=== PATIENT | male | born 1950 | race Caucasian/White ===

== ENCOUNTER → 2022-12-12 | Outpatient (CLI) | payer MEDICARE, OTHER, SELFPAY ==
--- NOTE | 2022-12-12 15:00 | CT_ITS ---
STUDY: CT ABDOMEN AND PELVIS WITHOUT CONTRAST REASON FOR EXAM: Male, 72 years old. GROSS HEMATURIA RADIATION DOSAGE (If Supplied By Facility): CTDIvol = ( 12.92 ) mGy, DLP = ( 703.87 ) mGycm TECHNIQUE: Transaxial images were obtained from the dome of the diaphragm to the symphysis pubis without oral contrast, and without intravenous contrast. Sagittal and coronal images were reconstructed. Individualized dose optimization techniques were used for this CT. COMPARISON: None. FINDINGS: Calcified granuloma in the posterior medial segment of the left lower lobe. Coronary artery calcification. Normal liver. Normal gallbladder and extrahepatic biliary system. Normal spleen. Normal pancreas. There is a small, circumscribed, smooth, low attenuation right adrenal mass, consistent with an adrenal adenoma. This measures 3 cm x 2.5 cm. Normal left adrenal gland. There is a 5.2 cm x 3.7 cm cyst in the medial midportion and lower pole of the right kidney. There is a 4.8 mm nonobstructive calculus in the upper pole calyx of the left kidney. There is a 0.55 mm nonobstructive calculus in the lower pole calyx of left kidney as well as a punctate calcification adjacent. There is a 1.8 cm x 2.1 cm cyst in the upper medial portion of the left kidney. This also evidence of a 2.17 m cyst in the inferior anterior aspect of the left kidney. Normal visualized stomach. Normal small intestine. Normal colon. The appendix is visualized and appears normal. There is diffuse atherosclerotic calcification of the abdominal aorta, without a demonstrated aneurysm. Normal inferior vena cava. There is borderline retroperitoneal lymphadenopathy with enlarged nodes no greater than 10mm in the short axis diameter. Multiple stones are seen within the gallbladder. There is evidence of diffuse bladder wall thickening. There is trabeculation of the bladder along its superior anterior aspect. There is enlargement of the prostate gland. It measures 5.9 cm x 5.2 cm. Calcifications are seen within it. There is a small umbilical hernia containing fat. There are degenerative changes of the visualized lumbar spine. CT/Abdomen/Pelvis without Cont IMPRESSION: Multiple stones are seen in the urinary bladder. Diffuse bladder wall thickening with the trabeculations especially superior and anterior. Prostatic enlargement with calcification and indentation at the bladder base. Nonobstructive left intrarenal calculi as well as bilateral renal cysts. Findings suggestive of a 3 cm adenoma in the right adrenal gland. Electronically Signed: Kvng Crabtree MD at 15:39 EDT ,
== END | disposition home or self-care (01) ==
LOC: CT 14:59
PROVIDERS: PCP Internal Medicine; Referring Provider Urology; Visit Provider Urology
DX: R31.0 Gross hematuria (principal)
CPT/HCPCS: 74176

== ENCOUNTER 2023-01-22 17:20 | Observation (INO) | payer MEDICARE, OTHER, SELFPAY ==
--- NOTE | 2023-01-13 06:46 | EKG12_ITS ---
Test Reason : PRE-OP Blood Pressure : / mmHG Vent. Rate : 055 BPM Atrial Rate : 055 BPM P-R Int : 234 ms QRS Dur : 096 ms QT Int : 442 ms P-R-T Axes : 025 -51 090 degrees QTc Int : 422 ms Sinus bradycardia with 1st degree A-V block Left axis deviation Low voltage QRS Inferior infarct , age undetermined Abnormal ECG No previous ECGs available Confirmed by SAGRARIO ALEJANDRO, TRIP ([id number]), newspaper managing editor ILANA CARRILLO ([id number]) on 01/16/2023 9:32:04 AM Referred By: Dawson Bailey Confirmed By:TRIP ZABALA MD
[2023-01-13 07:32] LABS: Hematocrit 42.9 % (40-54); Hemoglobin 13.6 g/dL (13.0-16.5); Mean Corp Hgb Conc 31.7 g/dL (32-36); Mean Corpuscular Volume 91.5 fL (80-94); Mean Platelet Vol. 9.3 fl (6.2-12.0); Platelet Count 253 K/mm3 (150-450); RBC Distribution Width CV 13.8 % (11.6-14.6); RBC Distribution Width SD 46.1 fl (35.1-43.9); Red Blood Count 4.69 M/mm3 (4.6-6.2); White Blood Count 6.5 K/mm3 (4.4-11.0)
[2023-01-13 08:07] LABS: Anion Gap 4 (5-15); BUN 28 mg/dL (7-18); BUN/Creat Ratio 29.3 RATIO (10-20); Calcium,Total 8.9 mg/dL (8.5-10.1); Chloride 106 mmol/L (98-107); Creatinine, Serum 0.96 mg/dL (0.70-1.30); EST Glomerular Filtration Rate 82 mL/min (>60); Est Glom Filt Rate - Afr Amer 99 mL/min (>60); Glucose 94 mg/dL (74-106); Sodium Level 139 mmol/L (136-145)
[2023-01-22] VITALS (12 sets, daily range): BP systolic 109–160; BP diastolic 58–83; PULSE 46–61; RESP 14–18; TEMP 36.2–36.8; O2SAT 94–100; BMI 29.1
--- NOTE | 2023-01-22 | IMM_PTH ---
PATIENT: ASHLEY SAEED V LOC: MS3 U#:[id number] AGE/SX: 72/M ROOM: [facility] [place] RE01/22/[address]: Dr. Dawson Bailey MD : 1950 BED: 1 DIS: 01/23/2023 SPEC #: [id number] RECD: 01/23/23 12:19 STATUS: ARNULFO REQ #: [id number] LEIF: 01/22/23 00:[address]: Dawson Bailey DEPT: IMMUNOHISTOCHEMISTRY RECD BY: Edith Barraza ENTERED: 01/23/23 12:20 SP TYPE: IMMUNO OTHR DR: Dr. Devang Sage MD Tissues: A - Prostate, NOS Procedures: P40 (add) 34BE12 (initial) PHYSICIAN & INSTITUTION [place] [id number] SPECIMEN INFORMATION: Tissue Source: A ? Prostate tissue Clinical Info: BPH with obstruction and bladder stones Specimen Number: [id number] A3 CPT code: 34361, 45018 METHODOLOGY: Deparaffinized sections of prefer/formalin-fixed tissue or PAP/DQ stained slides are incubated with monoclonal/polyclonal antibodies/oligonucleotide probes. Localization is made via biotin free immunoperoxidase method. Appropriate controls are performed and reacted as expected. Results on target cell population are indicated in the following table: RESULTS: ANTIBODY / CLONE RESULT Block A3 P40 (BC28) negative 34BE12 (34BE12) negative These tests were developed and their performance characteristics determined by [facility]. They may not have been cleared or approved by the U.S. Food and Drug Administration. The FDA has determined that such clearance or approval is not necessary. The above immunohistochemical/dualISH markers are ordered and reviewed by the Pathologist. INTERPRETATION: A. Prostate tissue, simple prostatectomy: Adenocarcinoma. JOSH:joaquin 01/24/2023
[2023-01-22] MEDS: Lactated Ringers 1,000 ML 15 ML IV (09:43)
--- NOTE | 2023-01-22 10:01 | PCM.HP.STD ---
HPI - General General Date of Service: 01/22/23 Chief Complaint: BPH with obstruction and bladder stones HPI Narrative ASHLEY SAEED, is a 72 M who presents for simple prostatectomy enucleation of extracting adenomas and also removal bladder stones robotically. [facility] Medical History (Updated 01/09/23 @ 12:34 by Kailey Johnston) Bladder disease Cardiology follow-up encounter Chewing tobacco nicotine dependence High cholesterol History of echocardiogram History of heart attack History of stress test Leg cramps Migraine headache Prostate disease Wears glasses Home Medications aspirin 81 mg tablet,delayed release 81 mg PO DAILY 01/09/23 [History Last Taken Unknown] atorvastatin 40 mg tablet 40 mg PO DAILY 01/09/23 [History Last Taken Unknown] cholecalciferol (vitamin D3) 25 mcg (1,000 unit) capsule (Vitamin D3) 25 mcg PO DAILY 01/09/23 [History Last Taken Unknown] clopidogrel 75 mg tablet 75 mg PO DAILY 01/09/23 [History Last Taken 01/15/23] finasteride 5 mg tablet 5 mg PO DAILY 01/09/23 [History Last Taken Unknown] losartan 50 mg tablet 50 mg PO DAILY 01/09/23 [History Last Taken 01/22/23] metoprolol tartrate 25 mg tablet 25 mg PO QHS 01/09/23 [History Last Taken 01/22/23] multivitamin with minerals 1 tab PO DAILY 01/09/23 [History Last Taken Unknown] tamsulosin 0.4 mg capsule 0.4 mg PO QHS 01/09/23 [History Last Taken Unknown] Allergy/AdvReac Type Severity Reaction Status Date / Time No Known Allergies Allergy Verified 01/22/23 09:14 Surgical History (Updated 01/09/23 @ 12:34 by Kailey Johnston) History of coronary artery stent placement Hx of appendectomy Hx of bilateral inguinal hernia repair Social History Smoking Status: Current every day smoker tobacco type: smokeless tobacco Vital Signs Vital Signs Vital Signs: 01/22/23 09:27 01/22/23 09:27 Temperature 97.6 F L Temperature Source Temporal Pulse Rate 53 L Respiratory Rate 16 Respiratory Pattern Normal Blood Pressure 160/79 H Blood Pressure Mean 106 Blood Pressure Source Monitor Blood Pressure Position Semi-Fowlers Blood Pressure Location Left Arm Pulse Ox 100 Oxygen Delivery Method Room Air Weight Weight: 100.244 kg Body Mass Index (BMI) 29.1 Results Lab / Micro Data Result Diagrams: 01/13/23 07:04 01/13/23 07:04
--- NOTE | 2023-01-22 10:08 | DCINST_ITS ---
Discharge Instructions Diet Discharge Diet: No restrictions, Light diet - advance as tolerated and Soft diet Activity Discharge Activity: May Not Drive Additional Activity Instructions:: no heavy lifting Dressing / Incision Catheter: Groves to leg bag and Groves to large bag Drain: [place] Follow Up Care Please Follow Up With: Dawson Bailey MD When: call for appt. Test Results: Test results from this visit will be discussed in further detail at your follow- up appointment, if applicable. Discharge Plan Admission Primary Reason for Your Visit: Simple prostatectomy Attending Provider: Dawson Bailey Primary Care Provider: Devang Saeg Discharge Orders/Prescriptions Prescriptions: New oxycodone-acetaminophen [Endocet] 5-325 mg tablet 1 tab PO Q6H PRN (Reason: pain) 7 Days Qty: 14 0RF ciprofloxacin HCl 500 mg tablet 500 mg PO BID Qty: 14 0RF Continued losartan 50 mg Tablet 50 mg PO DAILY atorvastatin 40 mg Tablet 40 mg PO DAILY multivitamin with minerals Tablet 1 tab PO DAILY cholecalciferol (vitamin D3) [Vitamin D3] 25 mcg (1,000 unit) Capsule 25 mcg PO DAILY metoprolol tartrate 25 mg Tablet 25 mg PO QHS Held clopidogrel 75 mg Tablet 75 mg PO DAILY Hold Instructions: Resume on 02/06/23. aspirin 81 mg Tablet,Delayed Release (Dr/Ec) 81 mg PO DAILY Hold Instructions: Resume on 02/06/23. Discontinued tamsulosin 0.4 mg Capsule 0.4 mg PO QHS finasteride 5 mg Tablet 5 mg PO DAILY Referrals / Follow Up: Dawson Bailey MD [Med Staff - Active Staff] - Devang Sage MD [Primary Care Provider] - Disposition Disposition (needs filled in before D/C Order can be placed): Home, Self Care
[2023-01-22] MEDS: Cefazolin 2 GM in 0.9% Normal Saline 100 ML IV (10:30)
--- NOTE | 2023-01-22 11:35 | PROST_PTH ---
PATIENT: ASHLEY SAEED V LOC: MS3 U#:[id number] AGE/SX: 72/M ROOM: [facility] [place] RE01/22/[address]: Dr. Dawson Bailey MD : 1950 BED: 1 DIS: 01/23/2023 SPEC #: [id number] RECD: 01/22/23 13:33 STATUS: ARNULFO WALLACE #: [id number] LEIF: 01/22/23 11:[address]: Dawson Bailey DEPT: SURGICAL PATHOLOGY RECD BY: Adam Tristan ENTERED: 01/22/23 13:57 SP TYPE: PROSTATE OTHR DR: Dr. Devang Sage MD Tissues: A - Prostate, NOS B - CALCULI C - Urinary bladder, NOS Procedures: Surgery Specimen Level I Surgery Specimen Level IV Surgery Specimen Level V HEADER OPERATION: Lap robotic simple prostatectomy, cystolitholapaxy PRE-OP DIAGNOSIS: BPH with obstruction and bladder stones TISSUE SUBMITTED: A ? Prostate tissue, B ? Bladder stone, C ? Bladder mucosa biopsy MICROSCOPIC DIAGNOSIS A. Prostate tissue, simple prostatectomy: A small focus of prostatic adenocarcinoma. See cancer summary in the comment section. B. Bladder stone: Pieces of stone (gross only). C. Bladder mucosa, biopsy: A piece of urothelial mucosa with chronic inflammation and congestion. Negative for malignancy. See comment. SJ:rg 01/24/2023 COMMENT A. Immunohistochemistry ([id number]) supports the above diagnosis. PROSTATE CANCER SUMMARY: Procedure: Simple Prostatectomy Histologic Type: Acinar adenocarcinoma Histologic Grade: Grade group 1 (Vinicius score 3+3=6) Tumor Quantitation: Percentage of prostate involved by tumor: <5% Tumor size: 0.5 x 0.4 cm (measured microscopically) Periprostatic Fat Invasion: Not applicable Seminal Vesicle Invasion: Not applicable Lymphvascular Invasion: Not identified Perineural Invasion: Not identified Additional Pathologic Findings: Benign prostatic hyperplasia, glandular and stromal type. - Chronic inflammation. Treatment Effect: No known presurgical therapy. The above summary is in compliance with [employer] [place] [employer] (CAP) Cancer Protocols Checklist and [place] Joint Committee on Cancer (AJCC), Staging Manual, 8th Ed. C. Inflammatory cell infiltrate consists of lymphocytes and eosinophils. MICROSCOPIC DESCRIPTION Slides are reviewed. GROSS DESCRIPTION A - Received in fixative is one container labeled with the patient's name and designated prostate tissue. The specimen consists of a simple prostatectomy specimen weighing 51 gm. The prostate measures 5.0 cm transversely, 4.0 cm anterior-posteriorly and 7.0 cm craniocaudally. Sections do not reveal any mass lesion. The left lobe appears to be larger than the right. [place] Straightener Stamper sections are submitted in ten cassettes as follows: 1-5 ? right lobe (cassette 1 also contains the most apical portion of the prostate), 610 ? left lobe. B - Received without fixative labeled with the patient's name and designated bladder stones. The specimen consists of eight pebble-like brownish-black round to ovoid stones measuring in aggregate 5.0 x 4.5 x 1.5 cm and 0.8 to 1.5 cm in greatest dimension. The specimen is for gross identification only. C - Received in fixative is one container labeled with the patient's name and designated bladder mucosa biopsy. The specimen consists of one irregular fragment of light hawley soft tissue that measures 0.7 x 0.5 x 0.2 cm. The specimen is totally submitted in one cassette. / JOSH:joaquin 01/22/2023 TC:0 CPT: 99141, 06673, 66062
[2023-01-22] MEDS: Bupivacaine Mpf 0.5% 30 ML VIAL (11:38)
--- NOTE | 2023-01-22 12:48 | OP.PCM_ITS ---
Report of Operation Date of Procedure: 01/15/23 Pre-Operative Diagnosis: BPH with obstruction bladder stone abnormal bladder mu cosa Post-Operative Diagnosis: Same Surgery/Procedure Performed:: Laparoscopic robotic assisted simple prostatectomy, cystolitholapaxy for large bladder stones, biopsy of bladder mucosa, extensive cauterization of the bladder mucosa Description of Surgical Findings:: Indication is a 72-year-old male with a history of a very large prostate very distended bladder and incomplete bladder emptying has been having recurrent bleeding on cystoscopy is found to have multiple large stones within the bladder a very large prostate and also some redness in the bladder mucosa today plan to taken the surgery working address all the issues we will do a simple prostatectomy to allow him to empty his bladder better muscle can removal the bladder stones and also will get a biopsy of the mucosa my suspicion is that this is chronic inflammation but what to rule out carcinoma by getting a biopsy. Patient is taken back to the operating room at a smooth induction of general anesthesia he was placed in supine position in dorsolithotomy position. The abdomen was shaved prepped and draped in usual sterile fashion Shah catheter was placed on the field. I then made a small incision above the umbilicus and then placed a Veress needle into the CO2 cavity field CO2 cavity CO2 gas and then placed the camera trocar right arm trocar left arm trocar and then air seal port. We first dissected some adhesions in the abdomen from a prior appendectomy years ago. Once this was freed up then we distended the bladder with 250 cc of normal saline I then made an incision in the midline of the bladder I then used 2 Percy needles to retract the bladder laterally. And then after the bladder was retracted laterally then I went in inside the bladder first identified multiple large stones the stones there were like 6 stones each measuring 2.5 cm in size all the stones were put in a bag and then extracted from the bladder. I then incised the mucosa over the prostate circumferentially around the catheter we deflated the catheter pulled back a little bit and then we proceeded with the nucleation of the prostate adenoma on the right side I got into the plane between the prostate and the bladder And the prostate and so I retracted the bladder laterally we worked her way underneath the prostate laterally left side right side and an anterior until we got all the way around the prostate adenoma and then came across the urethral strip opened up the strip and then the prostate was enucleated completely. Then at this point cauterization was done of the prostate fossa to control bleeding and then we placed Floseal in the prostate fossa and then we placed a 22 Norwegian three-way catheter in the prostate fossa and then we closed the then we put the end enucleated prostate into Endo Catch bag I then went to the mucosa and the mucosa had like a look like cystitis cystica but a chronic inflammation all around the bladder neck I suspect that this was from his bladder stones but I wanted to get a biopsy to rule out carcinoma so biopsy of the mucosa was taken and then I cauterized all the because of the look like abnormal reddish inflammation again it was questionable with is really cancer chronic inflammation so I did a biopsy and cauterize all the areas that looked abnormal. Both the left ureteral force orifices were identified and not injured during the procedure I then closed the bladder with a running stitch we used a 2 oh V-Loc stitch and then a second layer with a 2-0 Vicryl stitch once the bladder was closed and I extracted the prostate and the stones to the umbilicus the robot was undocked we then closed the extraction site and then we also placed a stitch in the air seal port which is a 1012 port patient anesthetic was reversed and he was extubated currently being taken to the PACU in stable condition with continuous bladder irrigation. Surgeon: Dawson Bailey Type of Anesthesia: General Drains: shah 22fr [address] Admit VTE Documentation VTE Present on Admission: No VTE Mechan Device Prophylaxis: SCD's VTE Pharm Prophylaxis ordered?: No
[2023-01-22] MEDS: Ketorolac 15 MG/ML Vial IV ×2 (15:20→20:27)
[2023-01-22] MEDS: 0.9% Normal Saline 1,000 ML 125 ML IV (18:43)
[2023-01-22] MEDS: Docusate Sodium 100 MG Capsule 200 MG PO (22:06)
[2023-01-22] MEDS: Ciprofloxacin 400 MG/200 ML BAG 200 MG IV (22:06)
[2023-01-23] MEDS: Ketorolac 15 MG/ML Vial IV (02:31)
[2023-01-23] MEDS: 0.9% Normal Saline 1,000 ML 125 ML IV (02:32)
[2023-01-23 02:35] VITALS: BP 127/67; PULSE 50; RESP 17; TEMP 36.6; O2SAT 97
[2023-01-23 06:05] VITALS: BP 136/65; PULSE 51; RESP 17; TEMP 36.5; O2SAT 93
--- NOTE | 2023-01-23 06:10 | PCM.PN.GU ---
Subjective Subjective Patient did well overnight urine is clear status post simple prostatectomy and removal of large bladder stones he can go home today with a Groves to a leg bag and we can plug the irrigation port and the three-way catheter. Objective Data Objective Data Vital Signs: Vital Signs Temp Pulse Resp BP Pulse Ox O2 Del Method 97.7 F L 51 L 17 136/65 H 93 Room Air 01/23/23 06:05 01/23/23 06:05 01/23/23 06:05 01/23/23 06:05 01/23/23 06:05 01/23/23 06:05 Oxygen Delivery Method Room Air Weight: 100.244 kg Body Mass Index (BMI) 29.1 Intake & Output: Intake and Output for Last 24 Hours 01/21/23 01/22/23 01/23/23 23:59 23:59 23:59 Intake Total 257.25 / 257.25 2177.08 / 2177.08 Output Total 7850 / 7850 78007 / 84884 Balance -7592.75 / -7592.75 -36753.92 / -20160.92 Lab / Micro Data Result Diagrams: 01/13/23 07:04 01/13/23 07:04
[2023-01-23] MEDS: Losartan Potassium 50 MG Tablet PO (07:38)
[2023-01-23] MEDS: Atorvastatin Calcium 40 MG Tablet PO (07:38)
[2023-01-23] MEDS: Docusate Sodium 100 MG Capsule 200 MG PO (07:38)
[2023-01-23] MEDS: Ciprofloxacin 400 MG/200 ML BAG 200 MG IV (07:41)
[2023-01-23 08:35] VITALS: BP 143/80; PULSE 65; RESP 16; TEMP 36.6; O2SAT 98
--- NOTE | 2023-01-23 10:00 | CASEMGMT ---
ALEKSANDER CHANEL NOTE: Pt being discharged home w/ F/C. RN CM to room. Introduced self and role. Pt states he has been educated on f/c care and is comfortable w/doing it. He denies having any further questions/concerns/needs. Margie BSN RN CM
== END 2023-01-23 10:03 | disposition home or self-care (01) ==
LOC: MS3 01-23 07:12
PROVIDERS: Anesthesiology; Admitting Provider Urology; PCP Family Medicine; Referring Provider Urology; Visit Provider Urology
PROC: 0VT04ZZ Resection of Prostate, Percutaneous Endoscopic Approach (ICD-10-PCS; CPT 55867; principal; 2023-01-22 11:15)
DX: C61 Malignant neoplasm of prostate (principal); N40.1 Benign prostatic hyperplasia with lower urinary tract symptoms; E78.00 Pure hypercholesterolemia, unspecified; Z79.02 Long term (current) use of antithrombotics/antiplatelets; F17.220 Nicotine dependence, chewing tobacco, uncomplicated; Z79.82 Long term (current) use of aspirin; N13.8 Other obstructive and reflux uropathy; I25.2 Old myocardial infarction; Z79.899 Other long term (current) drug therapy; N21.0 Calculus in bladder; Q64.79 Other congenital malformations of bladder and urethra
CPT/HCPCS: 52601; 52318; 52204; 00914; S2900; 36415; 80048; 85027; 88300; 88305; 88307; 88341; 88342; 93005; 96361; 96365; 96366; 96375; 96376; 99221; 99406; J7030; J7120; G0378; J0744; J2405

== ENCOUNTER → 2023-06-02 | Outpatient (CLI) | payer MEDICARE, OTHER, SELFPAY ==
[2023-06-02 09:36] LABS: PSA,Total- Diagnostic 1.06 ng/mL (0.0-4.0)
== END | disposition home or self-care (01) ==
LOC: LAB 08:26
PROVIDERS: PCP Family Medicine; Referring Provider Urology; Visit Provider Urology
DX: C61 Malignant neoplasm of prostate (principal)
CPT/HCPCS: 36415; 84153

== ENCOUNTER → 2024-06-07 | Outpatient (CLI) | payer MEDICARE, OTHER, SELFPAY ==
[2024-06-07 10:53] LABS: PSA,Total- Diagnostic 2.31 ng/mL (0.0-4.0)
== END | disposition home or self-care (01) ==
LOC: LAB 09:31
PROVIDERS: PCP Family Medicine; Referring Provider Urology; Visit Provider Urology
DX: C61 Malignant neoplasm of prostate (principal)
CPT/HCPCS: 36415; 84153

== ENCOUNTER 2025-03-02 12:56 | Day surgery (SDC) | payer MEDICARE, OTHER, SELFPAY ==
--- NOTE | 2025-03-01 17:08 | PAT.ANESEVAL ---
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 When Was Last Pacemaker Check QUESTION #4 FULL TEXT: You/Your Family Experience fever (hyperthermia) with Anesthesia Last Oral Intake Last Oral intake: Last Oral Intake NPO since Meds taken in AM with sips of water? 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 Has anyone observed you stop No 03/01/25 16:47 breathing during sleep? STOP Results Positive 03/01/25 16:47 QUESTION #5 FULL TEXT : Do you snore loudly (louder than talking or can be heard through closed doors)? 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 Specify any problems Hx of Preganancy in last 3 N/A 03/01/25 16:47 Months Nurse Filling Out Transfusion DSCHRIBER 03/01/25 16:47 & Questions: Date: 03/01/25 03/01/25 16:47 Time: 16:48 03/01/25 16:47 Patient unable to answer at this time (ie. 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: /Reproductive Hx- tubing mill operator Hx Now No 03/01/25 16:47 Gestational Age (in weeks): EDC: Hx Hx Para Hx Section SAB No 03/01/25 16:47 Active Medications Active Medications: Current Medications Generic Name Dose Route Start Last Admin Trade Name Freq PRN Reason Stop Dose Admin Cefazolin Sodium 2 gm/ Sodium 110 mls @ 200 mls/hr 03/02/25 15:30 Chloride IV 03/02/25 16:02 INTRAOP [facility] Medical History (Updated 03/01/25 @ 16:53 by Kailey Johnston) Loss of hearing Alcohol use Indwelling urethral catheter present Former smoker Wears glasses Prostate disease Bladder disease High cholesterol Leg cramps History of echocardiogram History of stress test Cardiology follow-up encounter History of heart attack Home Medications Medication Instructions Recorded Last Taken Type aspirin 81 mg tablet,delayed 81 mg PO DAILY 01/09/23 03/01/25 History release atorvastatin 40 mg tablet 80 mg PO DAILY 01/09/23 Unknown History cholecalciferol (vitamin D3) 25 25 mcg PO DAILY 01/09/23 Unknown History mcg (1,000 unit) capsule (Vitamin D3) losartan 50 mg tablet 50 mg PO DAILY 01/09/23 01/22/23 History metoprolol tartrate 25 mg tablet 25 mg PO QHS 01/09/23 01/22/23 History multivitamin with minerals 1 tab PO DAILY 01/09/23 Unknown History Allergy/AdvReac Type Severity Reaction Status Date / Time No Known Allergies Allergy Verified 03/01/25 16:45 Surgical History (Updated 03/01/25 @ 16:53 by Kailey Johnston) Hx of prostatectomy History of coronary artery stent placement Hx of bilateral inguinal hernia repair Hx of appendectomy Social History Smoking Status: Former smoker Audit: Pertinent Findings Pertinent Findings EKG Perinent findings: 01/13/2023 Sinus bradycardia with 1st degree A-V block Left axis deviation Low voltage QRS Inferior infarct , age undetermined Abnormal ECG No previous ECGs available Recommendation Anesthesia Recommendation Anesthesia recommendation: OPTIMIZED for anesthesia
--- NOTE | 2025-03-01 17:41 | PAT.ANE_ITS ---
Pre-Assessment Diagnosis/Proposed Procedure Planned Operative Procedure(s): CYSTOLITHOPAXY Anesthesia History Anesthesia History - community health educator: Anesthesia History - community health educator Hx Hospitalization No 03/01/25 16:47 Any Problems With Anesthesia No 03/01/25 16:47 Cholinesterase deficiency No 03/01/25 16:47 You/Your Family Experience No 03/01/25 16:47 fever (hyperthermia) with Relationship Recent Exposure to Contagious No 01/22/23 09:27 Disease Does patient have nerve No 03/01/25 16:47 stimulator Patient instructed to have device shut off --Does patient have Pacemaker or ICD? When Was Last Pacemaker Check QUESTION #4 FULL TEXT: You/Your Family Experience fever (hyperthermia) with Anesthesia Last Oral Intake Last Oral intake: Last Oral Intake NPO since Meds taken in AM with sips of water? 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 - community health educator: PONV - community health educator Female No 03/01/25 16:47 HX of Motion Sickness No 03/01/25 16:47 HX of N/V After Surgery No 03/01/25 16:47 Non-Smoker Yes 03/01/25 16:47 Duration of Surgery greater Yes 03/01/25 16:47 than 60 minutes Number of Risk Factors 2 03/01/25 16:47 PONV Score Moderate Risk 03/01/25 16:47 Height & Weight Height & Weight: Anesthesia: Height & Weight Height 6 ft 1 in 01/22/23 18:09 Respiratory Assessment Respiratory Assessment - community health educator: Respiratory Tract Infection Hx - community health educator Hx Respiratory Tract Infection No 03/01/25 16:47 STOP Sleep Apnea STOP Sleep Apnea - community health educator: STOP Sleep Apnea - community health educator Hx Hypertension Yes: CONTROLLED WITH MED 03/01/25 16:47 Hx Sleep Apnea No 03/01/25 16:47 CPAP BIPAP Do you snore loudly (louder Yes 03/01/25 16:47 than talking or can be heard Do you often feel tired/ No 03/01/25 16:47 fatigued/ sleepy during daytime? Has anyone observed you stop No 03/01/25 16:47 breathing during sleep? STOP Results Positive 03/01/25 16:47 QUESTION #5 FULL TEXT : Do you snore loudly (louder than talking or can be heard through closed doors)? 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 Specify any problems Hx of Preganancy in last 3 N/A 03/01/25 16:47 Months Nurse Filling Out Transfusion DSCHRIBER 03/01/25 16:47 & Questions: Date: 03/01/25 03/01/25 16:47 Time: 16:48 03/01/25 16:47 Patient unable to answer at this time (ie. confused, unrespo /Reproduction History /Reproductive History - community health educator: /Reproductive Hx- community health educator Hx Now No 03/01/25 16:47 Gestational Age (in weeks): EDC: Hx Hx Para Hx Section SAB No 03/01/25 16:47 Active Medications Active Medications: Current Medications Generic Name Dose Route Start Last Admin Trade Name Freq PRN Reason Stop Dose Admin Cefazolin Sodium 2 gm/ Sodium 110 mls @ 200 mls/hr 03/02/25 15:30 Chloride IV 03/02/25 16:02 INTRAOP ONE [facility] Medical History (Updated 03/01/25 @ 16:53 by Kailey Johnston) Loss of hearing Alcohol use Indwelling urethral catheter present Former smoker Wears glasses Prostate disease Bladder disease High cholesterol Leg cramps History of echocardiogram History of stress test Cardiology follow-up encounter History of heart attack Home Medications Medication Instructions Recorded Last Taken Type aspirin 81 mg tablet,delayed 81 mg PO DAILY 01/09/23 0 03/01/25 History release atorvastatin 40 mg tablet 80 mg PO DAILY 01/09/23 Unkn own History cholecalciferol (vitamin D3) 25 25 mcg PO DAILY Unknown History mcg (1,000 unit) capsule (Vitamin D3) losartan 50 mg tablet 50 mg PO DAILY 01/09/2301/09 History metoprolol tartrate 25 mg tablet 25 mg PO QHS 01/09/23 01/22/23 History multivitamin with minerals 1 tab PO DAILY 01/09/23 Unk nown History Allergy/AdvReac Type Severity Reaction Status Date / Time No Known Allergies Allergy Verified 03/01/25 16:45 Surgical History (Updated 03/01/25 @ 16:53 by Kailey Johnston) Hx of prostatectomy History of coronary artery stent placement Hx of bilateral inguinal hernia repair Hx of appendectomy Social History Smoking Status: Former smoker Audit: Pertinent Findings HISTORY of Pertinent Findings History of Pertinent Findings: EKG Pertinent Findings EKG Perinent findings 01/13/2023 Sinus 03/01/25 17:11 bradycardia with 1st degree A-V block Left axis deviation Low voltage QRS Inferior infarct , age undetermined Abnormal ECG No previous ECGs available Pertinent Findings Echo (EF%) pertinent findings: 11/01/2022 Mild concentric LVH LV is normal size. EF 45-50% with mild hypokinesis in the mid anterior, anterolateral wall and hypokinesis to dyskinesis seen in apical wall. No LV thrombus. Mild MR, TR and mild Ao sclerosis. Consult pertinent findings: Cardiology consultation 10/25/2024: s/p STEMI in 06/2022. Has 40% RCA and 30% mid ramus, EF improved to 45-50%. Denies any CP or [place]...continue ASA. Increased Atrovastatin to 80 mg daily. Continue Losartan and metoprolol with NHYA class I-II ischemic cardiomyopathy. Recommendation Anesthesia Recommendation Anesthesia recommendation: OPTIMIZED for anesthesia
[2025-03-02] VITALS (9 sets, daily range): BP systolic 146–170; BP diastolic 76–88; PULSE 54–62; RESP 16; TEMP 36.2–36.9; O2SAT 96–99; BMI 29.6
--- NOTE | 2025-03-02 07:02 | HP.PCM_ITS ---
HPI - General General Date of Service: 03/02/25 Chief Complaint: Bladder stone HPI Narrative ASHLEY SAEED, is a 75 M who presents with a bladder stone stuck in the urethra plan to proceed with cystolitholapaxy [facility] Medical History (Updated 03/01/25 @ 16:53 by Kailey Johnston) Loss of hearing Alcohol use Indwelling urethral catheter present Former smoker Wears glasses Prostate disease Bladder disease High cholesterol Leg cramps History of echocardiogram History of stress test Cardiology follow-up encounter History of heart attack Home Medications Medication Instructions Recorded Last Taken Type aspirin 81 mg tablet,delayed 81 mg PO DAILY 01/09/23 0 03/01/25 History release atorvastatin 40 mg tablet 80 mg PO DAILY 01/09/23 Unkn own History cholecalciferol (vitamin D3) 25 25 mcg PO DAILY Unknown History mcg (1,000 unit) capsule (Vitamin D3) losartan 50 mg tablet 50 mg PO DAILY 01/09/2301/09 History metoprolol tartrate 25 mg tablet 25 mg PO QHS 01/09/23 01/22/23 History multivitamin with minerals 1 tab PO DAILY 01/09/23 Unk nown History Allergy/AdvReac Type Severity Reaction Status Date / Time No Known Allergies Allergy Verified 03/01/25 16:45 Surgical History (Updated 03/01/25 @ 16:53 by Kailey Johnston) Hx of prostatectomy History of coronary artery stent placement Hx of bilateral inguinal hernia repair Hx of appendectomy Social History Smoking Status: Former smoker
[2025-03-02] MEDS: Lactated Ringers 1,000 ML 15 ML IV (13:50)
--- NOTE | 2025-03-02 15:12 | PRE.ANES_ITS ---
ASA Classification* ASA Classification ASA Classification: 3 Assessment & Plan Anesthesia* Anesthesia Assessment Anesthesia Assessment: Discussed sedation and/or anesthesia options, risks, benefits, and alternatives with patient/parents/legal guardian/POA. Questions invited. The patient/parents/legal guardian/POA seems to understand and agrees to proceed with anesthesia plan. Reviewed the physical assessment, medical history, allergy history and patient home medications list prior to surgery/procedure/anesthetic and documented any changes. Performed airway and anesthesia risk assessments. Anesthesia Type Anesthesia Type: General History Source History Obtained from:: Patient and Chart Anesthesia Focused Assessment* Temperature: 98.5 F Pulse Rate: 57 Blood Pressure: 170/88 Respiratory Rate: 16 Pulse Ox: 97 Oxygen Delivery Method: Room Air Airway Assessment Mouth opens: >3 cm Mallampati Score: IV Teeth Condition: Intact Neck Range of motion (ROM): Full ROM Labs Anesthesia Preop lab: CBC WBC 6.5 K/mm3 (4.4-11.0) 01/13/23 07:04 01/13/23 RBC 4.69 M/mm3 (4.6-6.2) 01/13/23 07:04 01/13/23 Hgb 13.6 g/dL (13.0-16.5) 01/13/23 07:04 01/13/23 Hct 42.9 % (40-54) 01/13/23 07:04 01/13/23 Plt Count 253 K/mm3 (150-450) 01/13/23 07:04 01/13/23 CHEMISTRY Potassium 4.0 mmol/L (3.5-5.1) 01/13/23 07:04 01/13/23 Sodium 139 mmol/L (136-145) 01/13/23 07:04 01/13/23 BUN 28 mg/dL (7-18) H 01/13/23 07:04 01/13/23 Creatinine 0.96 mg/dL (0.70-1.30) 01/13/23 07:04 01/13/23 Glucose 94 mg/dL (74-106) 01/13/23 07:04 01/13/23 COAG Pre-Assessment Diagnosis/Proposed Procedure Planned Operative Procedure(s): CYSTOLITHOPAXY Anesthesia History 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 When Was Last Pacemaker Check QUESTION #4 FULL TEXT: You/Your Family Experience fever (hyperthermia) with Anesthesia Last Oral Intake Last Oral intake: Last Oral Intake NPO since 08:00 03/02/25 13:51 Meds taken in AM with sips of No 03/02/25 13:51 water? Meds patient instructed to take am of surgery Any additional information?: Yes NPO since: 08:00 (Patient had coffee at 8 AM.) Meds taken in AM with sips of water?: No PONV PONV - marine equipment sales engineer: PONV - marine equipment sales engineer Female No 03/01/25 16:47 HX of Motion Sickness No 03/01/25 16:47 HX of N/V After Surgery No 03/01/25 16:47 Non-Smoker Yes 03/01/25 16:47 Duration of Surgery greater Yes 03/01/25 16:47 than 60 minutes Number of Risk Factors 2 03/01/25 16:47 PONV Score Moderate Risk 03/01/25 16:47 Height & Weight Height & Weight: Anesthesia: Height & Weight Height 6 ft 1 in 03/02/25 13:51 Weight: 102 kg 03/02/25 13:51 Body Mass Index (BMI) 29.6 03/02/25 13:51 Respiratory Assessment Respiratory Assessment - marine equipment sales engineer: Respiratory Tract Infection Hx - marine equipment sales engineer Hx Respiratory Tract Infection No 03/01/25 16:47 STOP Sleep Apnea STOP Sleep Apnea - marine equipment sales engineer: STOP Sleep Apnea - marine equipment sales engineer Hx Hypertension Yes: CONTROLLED WITH MED 03/01/25 16:47 Hx Sleep Apnea No 03/01/25 16:47 CPAP BIPAP Do you snore loudly (louder Yes 03/01/25 16:47 than talking or can be heard Do you often feel tired/ No 03/01/25 16:47 fatigued/ sleepy during daytime? Has anyone observed you stop No 03/01/25 16:47 breathing during sleep? STOP Results Positive 03/01/25 16:47 QUESTION #5 FULL TEXT : Do you snore loudly (louder than talking or can be heard through closed doors)? Tobacco Use History Tobacco Use History - marine equipment sales engineer: Tobacco Use History - marine equipment sales engineer Tobacco Use Smoking Status Former smoker 03/01/25 16:47 Hx Tobacco Use No 03/01/25 16:47 Years Smoking Packs Smoked per Day Smoking Cessation Date was Yes - quit smoking within 15 03/01/25 16:47 within the last 15 years years Hx Smoking Cessation Date 08/11/22 03/01/25 16:47 Hx Smoking Cessation No 03/01/25 16:47 Counseling Hematologic Medial History Hematologic Hx - marine equipment sales engineer: Hematologic Medical Hx - hospice/home health aide Hx of Blood Transfusion No 03/01/25 16:47 Hx of Transfusion in last 3 No 03/01/25 16:47 Months Date of Last Transfusion (if within last 3 months) Ever experience any problems No 03/01/25 16:47 with transfusion(s)? Specify any problems Hx of Preganancy in last 3 N/A 03/01/25 16:47 Months Nurse Filling Out Transfusion DSCHRIBER 03/01/25 16:47 & Questions: Date: 03/01/25 03/01/25 16:47 Time: 16:48 03/01/25 16:47 Patient unable to answer at this time (ie. confused, unrespo /Reproduction History /Reproductive History - marine equipment sales engineer: /Reproductive Hx- marine equipment sales engineer Hx Now No 03/01/25 16:47 Gestational Age (in weeks): EDC: Hx Hx Para Hx Section SAB No 03/01/25 16:47 Active Medications Active Medications: Current Medications Generic Name Dose Route Start Last Admin Trade Name Freq PRN Reason Stop Dose Admin Cefazolin Sodium 2 gm/ Sodium 110 mls @ 200 mls/hr 03/02/25 15:30 Chloride IV 03/02/25 16:02 INTRAOP ONE Lactated Ringer's 1,000 mls @ 15 mls/hr 03/02/25 13:30 03/02/25 13:50 IV 15 mls/hr .Q48H DIVINA Administration PFSH Medical History Loss of hearing Alcohol use Indwelling urethral catheter present Former smoker Wears glasses Prostate disease Bladder disease High cholesterol Leg cramps History of echocardiogram History of stress test Cardiology follow-up encounter History of heart attack Home Medications Medication Instructions Recorded Last Taken Type aspirin 81 mg tablet,delayed 81 mg PO DAILY 01/09/23 0 03/01/25 History release atorvastatin 40 mg tablet 80 mg PO DAILY 01/09/23 Unkn own History cholecalciferol (vitamin D3) 25 25 mcg PO DAILY Unknown History mcg (1,000 unit) capsule (Vitamin D3) losartan 50 mg tablet 50 mg PO DAILY 01/09/2301/09 History metoprolol tartrate 25 mg tablet 25 mg PO QHS 01/09/23 01/22/23 History multivitamin with minerals 1 tab PO DAILY 01/09/23 Unk nown History Allergy/AdvReac Type Severity Reaction Status Date / Time No Known Allergies Allergy Verified 03/02/25 13:49 Surgical History Hx of prostatectomy History of coronary artery stent placement Hx of bilateral inguinal hernia repair Hx of appendectomy Social History Smoking Status: Former smoker Review of Systems (Anesthesia) ROS Narrative System reviewed and no additional complaints, except as documented.
--- NOTE | 2025-03-02 16:35 | DCINST_ITS ---
Discharge Instructions DC O2, CPAP, BIPAP needs Home O2 Discharge instructions: No Dressing / Incision Discharge Activity: Return to Normal Activity and May Not Drive (while taking narcotic pain medications.) Dressing / Incision Call your doctor if you observe: Fever of 101 or Higher Follow Up Care Please Follow Up With: Dawson Bailey MD When: Call [phone] for an appointment Test Results: Test results from this visit will be discussed in further detail at your follow- up appointment, if applicable. Discharge Plan Admission Primary Reason for Your Visit: Laser of stones Attending Provider: Dawson Bailey Primary Care Provider: Devang Sage Instructions Print Language: Pashto Discharge Orders/Prescriptions Prescriptions: New ciprofloxacin HCl [Cipro] 500 mg tablet 500 mg PO BID Qty: 10 0RF Continued losartan 50 mg Tablet 50 mg PO DAILY atorvastatin 40 mg Tablet 80 mg PO DAILY multivitamin with minerals Tablet 1 tab PO DAILY cholecalciferol (vitamin D3) [Vitamin D3] 25 mcg (1,000 unit) Capsule 25 mcg PO DAILY metoprolol tartrate 25 mg Tablet 25 mg PO QHS Held aspirin 81 mg Tablet,Delayed Release (Dr/Ec) 81 mg PO DAILY Hold Instructions: Resume on 03/09/25. Referrals / Follow Up: Devang Sage MD [Primary Care Provider] - Disposition Disposition (needs filled in before D/C Order can be placed): Home, Self Care
--- NOTE | 2025-03-02 16:35 | OP.PCM_ITS ---
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, small stones Post-Operative Diagnosis: The same Surgery/Procedure Performed: Cystoscopy, laser of stones in the urethra, laser stones in the bladder, dilation the urethra with sounds adjustment examiner: No Type of Anesthesia: General RN Documented Start/Stop Times: Operation Date: 03/02/25 15:30 Case Time Into Pre-Op 03/02/25 13:22 Out of Pre-Op 03/02/25 16:10 Anesthesia Start 03/02/25 16:11 Into Room 03/02/25 16:11 Procedure Start 03/02/25 16:20 Procedure End 03/02/25 16:32 Procedure Start Time: 16:20 Procedure Stop Time: 16:36 Select all DRAINS/GRAFTS/IMPLANTS that apply: None Estimated Blood Loss: 10cc Specimen collected: No Description of surgery: 75-year-old male has a history of a very large prostate he had a simple prostatectomy long time ago presents to my office because he feels like he is not able to urinate and feels like there is a stone in the distal urethra office cystoscopy revealed that there is a stone stuck in the distal urethra probably b ecause of a meatal stenosis and he also likely has a stone in the bladder based on bladder ultrasound today going to go ahead and laser both the stones remove these and dilate the urethral stenosis Patient was taken back to the operating room after smooth induction of anesthesia he was placed in dorsolithotomy position. Went into the urethra with a 21 Beninese rigid cystourethroscope encountered the stone in the distal urethra right at the meatus I was able to push it back a little bit I then used a 500 µm laser fiber laser the stone little tiny pieces and then went into the bladder there was another large stone in the bladder was about 1 cm in size and the stone was lasered little tiny pieces and I evacuated all the stones I then removed the cystoscope I then dilated the meatus from 14 Beninese up to 30 Beninese to stretch open the meatal stenosis no [place] was placed I then looked inside the bladder there is no all the stones were gone the urethra was not wide open no more stones and patient ascetic reversed taken back to the PACU in good condition follow-up in a few weeks for checkup successful removal of stone in the urethra and also the bladder stones and dilation of the urethral stenosis Surgical Findings: Stone in the urethra removed and stones in the bladder removed and urethra dilated Complications Complications: No Admit VTE Documentation VTE Present on Admission: No VTE Mechan Device Prophylaxis: SCD's VTE Pharm Prophylaxis ordered?: No
--- NOTE | 2025-03-02 16:46 | PCM.POST.ANE ---
Anesthesia: Postop Eval I Current Vital Signs Temperature: 97.1 F Pulse Rate: 62 Blood Pressure: 159/80 Respiratory Rate: 16 Pulse Ox: 98 Oxygen Delivery Method: Room Air Assessment Airway patent: Yes Spontaneous unlabored respirations: Yes Mental status: Awake and Calm nausea: No Vomiting: No Anesthesia Complication: No Fluid Hydration Crystalloid volume administer (ml): 400 Total IV fluid infused: 400 Progress Note Anesthesia document: Postop Eval 1 completed: Yes
--- NOTE | 2025-03-02 19:14 | POSTOPAN2_ITS ---
Anesthesia Postop Eval I Sum Postop Eval Completion status Anesthesia document: Postop Eval 1 completed: Yes Anesthesia Postop Eval I Summary Anesthesia Postop Eval I Summary: Anesthesia Postop Eval I: Assessment Summary Airway patent Yes 03/02/25 16:47 PHOTOLITH OPERATOR.[email or web address] Spontaneous unlabored Yes 03/02/25 16:47 PHOTOLITH OPERATOR.SHOF respirations Mental status Awake,Calm 03/02/25 16:47 PHOTOLITH OPERATOR.SHOF nausea No 03/02/25 16:47 PHOTOLITH OPERATOR.SHOF Vomiting No 03/02/25 16:47 PHOTOLITH OPERATOR.SHOF Anesthesia Postop Eval I: Fluid Summary Crystalloid volume administer 400 03/02/25 16:47 PHOTOLITH OPERATOR.SHOF (ml) Colloids volume administered ( ml) Blood Product volume administered (ml) Total IV fluid infused 400 03/02/25 16:47 PHOTOLITH OPERATOR.SHOF Anesthesia Postop Eval I: Summary Notes Anesthesia Complication No 03/02/25 16:47 PHOTOLITH OPERATOR.SHOF Anesthesia Complication Comment: Post-operative progress note Anesthesia: Postop Eval II Evaluation Mental status: Awake Pain Level: 2 nausea: No Vomiting: No
--- NOTE | 2025-03-02 19:14 | PCM.POSTANE2 ---
Anesthesia Postop Eval I Sum Postop Eval Completion status Anesthesia document: Postop Eval 1 completed: Yes Anesthesia Postop Eval I Summary Anesthesia Postop Eval I Summary: Anesthesia Postop Eval I: Assessment Summary Airway patent Yes 03/02/25 16:47 CERTIFIED MEDICAL RECORDS CODER.SHOF Spontaneous unlabored Yes 03/02/25 16:47 CERTIFIED MEDICAL RECORDS CODER.SHOF respirations Mental status Awake,Calm 03/02/25 16:47 CERTIFIED MEDICAL RECORDS CODER.SHOF nausea No 03/02/25 16:47 CERTIFIED MEDICAL RECORDS CODER.SHOF Vomiting No 03/02/25 16:47 CERTIFIED MEDICAL RECORDS CODER.SHOF Anesthesia Postop Eval I: Fluid Summary Crystalloid volume administer 400 03/02/25 16:47 CERTIFIED MEDICAL RECORDS CODER.SHOF (ml) Colloids volume administered ( ml) Blood Product volume administered (ml) Total IV fluid infused 400 03/02/25 16:47 CERTIFIED MEDICAL RECORDS CODER.SHOF Anesthesia Postop Eval I: Summary Notes Anesthesia Complication No 03/02/25 16:47 CERTIFIED MEDICAL RECORDS CODER.SHOF Anesthesia Complication Comment: Post-operative progress note Anesthesia: Postop Eval II Evaluation Mental status: Awake Pain Level: 2 nausea: No Vomiting: No
== END 2025-03-02 17:30 | disposition home or self-care (01) ==
LOC: SDC 12:57 → AC 12:58
PROVIDERS: PCP Family Medicine; Referring Provider Urology; Visit Provider Urology
PROC: (CPT 52310; principal; 2025-03-02 15:20)
DX: N21.0 Calculus in bladder (principal); E78.00 Pure hypercholesterolemia, unspecified; Z79.82 Long term (current) use of aspirin; Z87.891 Personal history of nicotine dependence; I25.2 Old myocardial infarction; Z95.5 Presence of coronary angioplasty implant and graft; N20.1 Calculus of ureter; N35.919 Unspecified urethral stricture, male, unspecified site
CPT/HCPCS: 52310; 52317; 00910; C1769; J2405